=== PATIENT | male | born 1990 | race Caucasian/White ===

== ENCOUNTER 2024-01-12 11:17 | Inpatient (IN) | payer SELFPAY ==
[~2024-01-12] VITALS: Ht 167.6 cm; Wt 108.9 kg
[2024-01-12 11:35] VITALS: BP 122/73; PULSE 87; RESP 20; TEMP 97.5; O2SAT 97
[2024-01-12 12:26] LABS: APPEARANCE,URINE CLEAR (CLEAR); BILIRUBIN,URINE NEGATIVE (NEGATIVE); BLOOD, URINE NEGATIVE (NEGATIVE); COLOR,URINE YELLOW (YELLOW); LEUKOCYTE ESTERASE ,URINE NEGATIVE (NEGATIVE); NITRITE, URINE NEGATIVE (NEGATIVE); PROTEIN,URINE NEGATIVE (NEGATIVE); UGLUCOSE NEGATIVE (NEGATIVE)
[2024-01-12 12:57] LABS: BASOPHILS # (AUTO) 0.1 K/uL (0.00-0.22); BASOPHILS % (AUTO) 0.6 % (0.0-2.0); EOSINOPHILS # (AUTO) 0.1 K/uL (0-0.4); EOSINOPHILS % (AUTO) 0.6 % (0.0-4.0); HEMATOCRIT 41.1 % (36-52); HEMOGLOBIN 14.4 g/dL (12.0-18.0); LYMPHOCYTES # (AUTO) 1.6 K/uL (2.0-11.5); LYMPHOCYTES % (AUTO) 11.2 % (20.5-51.1); MEAN CORPUSCULAR HEMOGLOBIN 28 pg (27-31); MEAN CORPUSCULAR HGB CONC 35 g/dL (33-37); MEAN CORPUSCULAR VOLUME 80.1 fL (80-94); MONOCYTES # (AUTO) 0.8 K/uL (0.8-1.0); MONOCYTES % (AUTO) 5.5 % (1.7-9.3); NEUTROPHILS # (AUTO) 11.9 K/uL (1.8-7.7); NEUTROPHILS % (AUTO) 82.1 % (42.2-75.2); PLATELET COUNT (AUTO) 317 K/uL (140-450); RED BLOOD CELL COUNT(AUTO) 5.13 MIL/uL (4.20-6.10); RED CELL DISTRIBUTION WIDTH 13.9 % (11.6-13.7); WHITE BLOOD COUNT (AUTO) 14.5 K/uL (4.8-10.8)
[2024-01-12] MEDS: NACL 0.9% 1,000 ML IV ONE (12:58)
[2024-01-12] MEDS: KETOROLAC 30 MG/ML VIAL IVP ONE (13:09)
[2024-01-12 13:31] LABS: ANION GAP 12.4 (8-16); CALCIUM 9.2 mg/dL (8.5-10.1); CARBON DIOXIDE 29.1 mmol/L (21-32); CREATININE 0.9 mg/dL (0.6-1.3); POTASSIUM 3.5 mmol/L (3.5-5.1)
[2024-01-12 13:47] LABS: ALBUMIN 3.9 g/dL (3.4-5.0); BILIRUBIN,DIRECT 0.1 mg/dL (0.0-0.3); TOTAL BILIRUBIN 0.6 mg/dL (0.0-1.0); TOTAL PROTEIN, SERUM 7.7 g/dL (6.4-8.2)
[2024-01-12 13:48] VITALS: O2SAT 97
[2024-01-12] MEDS: NACL 0.9% 1,000 ML IV SCH ×2 (14:31→16:20)
[2024-01-12] MEDS ORDERED: cefTRIAXone 2,000 MG VIAL ONE (14:36)
[2024-01-12] MEDS: ONDANSETRON 4 MG/2 ML VIAL IVP ONE (14:44)
[2024-01-12] MEDS: metroNIDAZOLE 500 MG/NS PREMIX 100 ML IV ONE (14:45)
[2024-01-12] MEDS: MORPHINE SULFATE 4 MG/ML SYR IVP ONE (14:45)
[2024-01-12] MEDS ORDERED: MORPHINE SULFATE 2 MG/ML SYR IVP PRN (15:50)
[2024-01-12] MEDS ORDERED: MORPHINE SULFATE 4 MG/ML SYR IVP PRN (15:50)
[2024-01-12] MEDS ORDERED: HYDROcodone/APAP 5/325 MG 1 TAB TAB PO PRN (15:50)
[2024-01-12] MEDS ORDERED: ONDANSETRON 4 MG/2 ML VIAL IVP PRN (15:50)
[2024-01-12 16:32] LABS: INR 1.05 (0.8-1.2)
[2024-01-12] MEDS: cefTRIAXone 2,000 MG in DEXTROSE 5% 100 ML IV ONE (16:38)
[2024-01-12 17:12] VITALS: O2SAT 97
[2024-01-12] MEDS ORDERED: AMPICILLIN/SULBACTAM 1.5 GM in NACL 0.9% 50 ML IV SCH (18:00)
[2024-01-12] MEDS ORDERED: LORazepam 2 MG/ML VIAL IVP STA (18:52)
[2024-01-12 19:02] VITALS: O2SAT 97
[2024-01-12 19:38] VITALS: BP 105/52; PULSE 83; RESP 18; TEMP 98.1; O2SAT 98
[2024-01-13] MEDS ORDERED: ENOXAPARIN 40 MG/0.4 ML SYR SUBQ SCH (09:00)
== END 2024-01-12 19:38 | disposition short-term general hospital (02) | DRG 395 ==
LOC: MED 11:17 → MTU 15:59
PROVIDERS: ADMIT Family Medicine; ATTEND Family Medicine
DX: K35.80 Unspecified acute appendicitis (principal); K76.0 Fatty (change of) liver, not elsewhere classified
CPT/HCPCS: 36415; 80048; 80076; 81003; 83690; 85025; 85610; 87040; 96361; 96365; 96375; 99285; J0295; J0696; J1885; J2270; J2405; J3490